=== PATIENT | female | born 1995 | race Caucasian/White ===

== ENCOUNTER 2017-03-07 19:02 | Inpatient (IN) | payer OTHER, MEDICAID ==
[2017-03-07 22:23] LABS: RUPTURE FETAL MEMBRANES POSITIVE (NEGATIVE)
[2017-03-07] MEDS ORDERED: CARBOPROST 250 MCG INJ IM (23:00)
[2017-03-07] MEDS ORDERED: OXYTOCIN 30 UNITS/LR 500 ML IV (23:00)
[2017-03-07] MEDS ORDERED: MISOPROSTOL 200 MCG TAB PR (23:00)
[2017-03-07] MEDS ORDERED: METHYLERGONOVINE 0.2 MG INJ IM (23:00)
[2017-03-07] MEDS ORDERED: LIDOCAINE 1% (MPF) 30 ML INJ INJ (23:00)
[2017-03-07] MEDS ORDERED: IBUPROFEN 600 MG TAB PO (23:00)
[2017-03-08 01:43] LABS: ADD MAN DIFF? NO
[2017-03-08 01:52] LABS: WHITE BLOOD COUNT 10.6 10^3/ul (4.8-10.8)
[2017-03-08 01:52] LABS: BASOPHIL # 0.1 10^3/ul (0.0-0.1); BASOPHILS % 0.6 % (0.0-2.0); EOSINOPHILS # 0.1 10^3/ul (0.0-0.5); EOSINOPHILS % 1.3 % (0.0-7.0); HEMOGLOBIN 10.5 g/dl (12.0-16.0); LYMPHOCYTES # 2.5 10^3/ul (0.8-2.9); LYMPHOCYTES % 23.7 % (18.0-55.0); MEAN CORPUSCULAR HEMOGLOBIN 27.6 pg (29.0-33.0); MEAN CORPUSCULAR HGB CONC 32.8 g/dl (32.0-37.0); MEAN PLATELET VOLUME 12.5 fl (7.4-10.4); MONOCYTE # 0.6 10^3/ul (0.3-0.9); MONOCYTES % 5.5 % (0.0-13.0); NEUTROPHIL # 7.3 10^3/ul (1.6-7.5); NEUTROPHILS % 68.2 % (30.0-74.0); PLATELET COUNT 161 10^3/UL (140-415); RED BLOOD COUNT 3.81 10^6/ul (4.20-5.40); RED CELL DISTRIBUTION WIDTH 14.8 % (11.5-14.5)
[2017-03-08] MEDS: LACTATED RINGER'S 500 ML IV (01:52)
[2017-03-08] MEDS: AMPICILLIN 2 GM/NS (PMX) 100 ML IVPB (01:52)
[2017-03-08 02:09] LABS: INR 0.94; PROTIME 12.7 Sec (11.9-14.9)
[2017-03-08 02:10] LABS: PARTIAL THROMBOPLASTIN TIME 26.4 Sec (25.0-35.0)
[2017-03-08 03:43] LABS: ADD UMIC NO; UR ASCORBIC ACID NEGATIVE (NEGATIVE); UR BILIRUBIN (Dip) NEGATIVE (NEGATIVE); UR BLOOD (Dip) NEGATIVE (NEGATIVE); UR CLARITY CLEAR (CLEAR); UR COLOR YELLOW (YELLOW); UR GLUCOSE (Dip) NEGATIVE (NEGATIVE); UR KETONES (Dip) 2+ mg/dL (NEGATIVE); UR LEUKOCYTE ESTERASE (Dip) NEGATIVE Leu/ul (NEGATIVE); UR NITRITE (Dip) NEGATIVE (NEGATIVE); UR SPECIFIC GRAVITY (Dip) 1.021 (1.003-1.030); UR TOTAL PROTEIN (Dip) NEGATIVE (NEGATIVE); UR UROBILINOGEN (Dip) NEGATIVE (NEGATIVE)
[2017-03-08] MEDS: AMPICILLIN 1 GM/NS (PMX) 50 ML IVPB ×6 (05:52→21:03)
[2017-03-08] MEDS: LACTATED RINGER'S 1,000 ML IV ×4 (05:54→22:46)
[2017-03-08] MEDS: OXYTOCIN 30 UNITS/LR 500 ML IV (09:50)
[2017-03-08 15:23] LABS: RAPID PLASMA REAGIN NONREACTIVE (NR)
[2017-03-08] MEDS: BUTORPHANOL 2 MG INJ IV (20:29)
[2017-03-09] MEDS: AMPICILLIN 1 GM/NS (PMX) 50 ML IVPB ×6 (01:17→21:00)
[2017-03-09] MEDS: LACTATED RINGER'S 1,000 ML IV ×3 (01:35→11:42)
[2017-03-09] MEDS ORDERED: ONDANSETRON 4 MG INJ IV (02:00)
[2017-03-09] MEDS ORDERED: DIPHENHYDRAMINE 50 MG INJ IV (02:00)
[2017-03-09] MEDS ORDERED: EPHEDrine SULFATE 50 MG/5 ML SYG IV (02:00)
[2017-03-09] MEDS ORDERED: NALOXONE (0.4 MG/ML) INJ IV (02:00)
[2017-03-09] MEDS: FENTAnyl 2MCG/ML-ROPIV 0.2% 100 ML BAG EPI ×2 (13:03→19:46)
[2017-03-09] MEDS: DEXTROSE 5%-LR 1,000 ML IV (14:27)
[2017-03-09] MEDS: ACETAMINOPHEN 500 MG TAB PO (19:55)
[2017-03-10] MEDS: OXYTOCIN 30 UNITS/LR 500 ML IV ×3 (00:21→06:47)
[2017-03-10] MEDS: AMPICILLIN 1 GM/NS (PMX) 50 ML IVPB (00:46)
[2017-03-10] MEDS: LACTATED RINGER'S 1,000 ML IV (02:26)
[2017-03-10] MEDS: FENTAnyl 2MCG/ML-ROPIV 0.2% 100 ML BAG EPI (02:29)
[2017-03-10] MEDS ORDERED: OXYTOCIN 30 UNITS/LR 500 ML IV ×2 (05:53→06:00)
[2017-03-10] MEDS ORDERED: METHYLERGONOVINE 0.2 MG INJ IM (06:00)
[2017-03-10] MEDS ORDERED: CARBOPROST 250 MCG INJ IM (06:00)
[2017-03-10] MEDS ORDERED: MISOPROSTOL 200 MCG TAB PR (06:00)
[2017-03-10] MEDS ORDERED: LANOLIN 7 GM TUBE TOP (06:00)
[2017-03-10] MEDS ORDERED: OXYCODONE/ASPIRIN (4.88/325) TAB PO (06:00)
[2017-03-10] MEDS: BENZOCAINE 20% 56 ML SPRAY TOP (08:40)
[2017-03-10] MEDS: WITCH HAZEL/GLYCERIN PAD PR (08:41)
[2017-03-10] MEDS: IBUPROFEN 600 MG TAB PO ×4 (12:17→23:39)
[2017-03-10] MEDS: LACTATED RINGER'S 1,000 ML IV* (15:46)
[2017-03-11] MEDS: IBUPROFEN 600 MG TAB PO ×4 (06:00→23:39)
[2017-03-11 08:56] LABS: ADD MAN DIFF? NO
[2017-03-11 09:00] LABS: WHITE BLOOD COUNT 14.4 10^3/ul (4.8-10.8)
[2017-03-11 09:00] LABS: BASOPHIL # 0.1 10^3/ul (0.0-0.1); BASOPHILS % 0.3 % (0.0-2.0); EOSINOPHILS # 0.3 10^3/ul (0.0-0.5); EOSINOPHILS % 2.3 % (0.0-7.0); HEMATOCRIT 27.1 % (37.0-47.0); HEMOGLOBIN 8.8 g/dl (12.0-16.0); LYMPHOCYTES % 20.8 % (18.0-55.0); MEAN CORPUSCULAR HEMOGLOBIN 27.3 pg (29.0-33.0); MEAN CORPUSCULAR HGB CONC 32.5 g/dl (32.0-37.0); MEAN CORPUSCULAR VOLUME 84.2 fl (72.0-104.0); MEAN PLATELET VOLUME 12.4 fl (7.4-10.4); MONOCYTE # 0.8 10^3/ul (0.3-0.9); MONOCYTES % 5.8 % (0.0-13.0); NEUTROPHILS % 69.8 % (30.0-74.0); PLATELET COUNT 171 10^3/UL (140-415); RED BLOOD COUNT 3.22 10^6/ul (4.20-5.40); RED CELL DISTRIBUTION WIDTH 15.1 % (11.5-14.5)
[2017-03-12] MEDS: IBUPROFEN 600 MG TAB PO ×2 (05:34→12:00)
[2017-03-12] MEDS: DIPHTH/TET/ACEL PERTUSS (ADULT) 0.5 ML VIAL IM* (09:00)
[2017-03-12] MEDS: LACTATED RINGER'S 1,000 ML IV* (12:14)
== END 2017-03-12 13:55 | disposition home or self-care (01) | DRG 775 ==
LOC: OBT 19:02 → PP1 03-10 08:12 → L-D 19:04 → PP1 03-10 19:50 → L-D 19:17
PROVIDERS: Obstetrics & Gynecology
PROC: 10E0XZZ Delivery of Products of Conception, External Approach (ICD-10-PCS; principal; 2017-03-09)
PROC: 0KQM0ZZ Repair Perineum Muscle, Open Approach (ICD-10-PCS; 2017-03-09)
DX: O70.1 Second degree perineal laceration during delivery (principal); Z37.0 Single live birth; Z3A.39 39 weeks gestation of pregnancy
CPT/HCPCS: 62319; 76815; 81003; 84112; 85025; 85610; 85730; 86592; 86900; 86901; 90715

== ENCOUNTER 2018-02-22 16:08 | Emergency (ER) | payer OTHER ==
[2018-02-22] MEDS: PHENAZOPYRIDINE 100 MG TAB PO (17:44)
[2018-02-22 18:00] LABS: ADD UMIC YES; UR ASCORBIC ACID NEGATIVE (NEGATIVE); UR BACTERIA FEW /HPF (NONE SEEN); UR BILIRUBIN (Dip) NEGATIVE (NEGATIVE); UR BLOOD (Dip) NEGATIVE (NEGATIVE); UR CLARITY SLIGHTLY CLOUDY (CLEAR); UR COLOR YELLOW (YELLOW); UR GLUCOSE (Dip) NEGATIVE (NEGATIVE); UR KETONES (Dip) NEGATIVE (NEGATIVE); UR LEUKOCYTE ESTERASE (Dip) 1+ Leu/ul (NEGATIVE); UR MUCUS MODERATE /HPF (NONE SEEN); UR NITRITE (Dip) NEGATIVE (NEGATIVE); UR NONSQUAMOUS EPITHELIAL CELL 1 /HPF (NONE SEEN); UR RBC 3 /HPF (0-5); UR SQUAMOUS EPITHELIAL CELL MODERATE /HPF (FEW); UR TOTAL PROTEIN (Dip) NEGATIVE (NEGATIVE); UR UROBILINOGEN (Dip) NEGATIVE (NEGATIVE); UR WBC 43 /HPF (0-5)
== END 2018-02-22 18:13 | disposition home or self-care (01) ==
LOC: FTE 16:08
DX: N12 Tubulo-interstitial nephritis, not specified as acute or chronic (principal)
CPT/HCPCS: 81001; 81025; 99283

== ENCOUNTER 2018-04-11 18:40 | Emergency (ER) | payer SELFPAY, OTHER | END 2018-04-11 20:45 | disposition left against medical advice (07) | LOC: E/R 18:40 | DX: Z53.21 Procedure and treatment not carried out due to patient leaving prior to being seen by health care provider (principal) ==

== ENCOUNTER 2018-11-03 01:30 | Emergency (ER) | payer OTHER ==
[2018-11-03] MEDS: DEXAMETHASONE 10 MG/ML 1 ML INJ IV (02:08)
[2018-11-03] MEDS: DIPHENHYDRAMINE 50 MG INJ IV (02:08)
[2018-11-03] MEDS: FAMOTIDINE 20 MG INJ IV (02:08)
== END 2018-11-03 02:46 | disposition home or self-care (01) ==
LOC: FTE 01:30
DX: R21 Rash and other nonspecific skin eruption (principal)
CPT/HCPCS: 96374; 96375; 99284-25